=== PATIENT | female | born 1985 ===

== ENCOUNTER 2020-11-08 21:01 | Day surgery (SDC) | payer BC ==
[2020-11-08 21:30] VITALS: BMI 29.5
[2020-11-08] MEDS ORDERED: hydrALAZINE 20 MG/ML VIAL SLOW IVP PRN (21:52)
[2020-11-08] MEDS ORDERED: Lactated Ringer's 1,000 ML IV SCH (23:59)
== END 2020-11-09 03:00 | disposition home or self-care (01) ==
LOC: CSHLD/OP 21:01
PROVIDERS: ATTEND Obstetrics & Gynecology
DX: O46.93 Antepartum hemorrhage, unspecified, third trimester (principal); O47.03 False labor before 37 completed weeks of gestation, third trimester; O09.513 Supervision of elderly primigravida, third trimester; Z3A.32 32 weeks gestation of pregnancy; Z79.899 Other long term (current) drug therapy
CPT/HCPCS: 96360; 96361; 99283